=== PATIENT | male | born 1965 | race American Indian/Alaskan Native ===

== ENCOUNTER 2018-04-17 13:57 | Emergency (ER) | payer SELFPAY ==
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
--- NOTE | 2018-04-17 15:28 | XRay Report ---
CERVICAL SPINE, 3 views: History: Neck pain. Findings: The vertebral bodies, disk spaces, posterior elements and prevertebral soft tissues are unremarkable. The dens is intact. No acute fracture or malalignment is identified. Early degenerative disc disease is identified at C5-6. Impression: Early degenerative disc disease at C5-6. No acute injury is appreciated.
--- NOTE | 2018-04-17 15:29 | XRay Report ---
AP AND LATERAL LUMBOSACRAL SPINE: History: Pain. There is straightening of the normal lumbar lordosis. Mild degenerative disc disease and facet arthropathy are identified at all levels. No evidence for compression deformity, subluxation or bone lesion. IMPRESSION: Lumbar spondylosis. No acute injury is identified.
[2018-04-17] MEDS ORDERED: DELTASONE PO ONE (16:04)
[2018-04-17] MEDS ORDERED: TORADOL IM ONE (16:04)
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
[2018-04-17 16:40] VITALS: BP 179/99
== END 2018-04-17 16:39 | disposition home or self-care (01) ==
LOC: ED 13:57
DX: M54.5 Low back pain (principal); M54.2 Cervicalgia; M62.830 Muscle spasm of back; V49.49XA Driver injured in collision with other motor vehicles in traffic accident, initial encounter; Y93.89 Activity, other specified; Y92.410 Unspecified street and highway as the place of occurrence of the external cause; Y99.8 Other external cause status
CPT/HCPCS: 72040; 72100; 96372; 99283; J1885; J7512

== ENCOUNTER 2018-07-01 12:53 | Emergency (ER) | payer OTHER ==
--- NOTE | 2018-07-01 14:10 | Emergency Department Report ---
Chief Complaint: Extremity Injury, Lower Stated Complaint: LEG PAIN Time Seen by Provider: 07/01/18 14:08 - HPI History of Present Illness: diabetic with r leg pain- cant extend r leg in wheelchair due to heel pain on the left heel no trauma no open lesions per pt rx metformin pcp none psh none pmh none cig smoker etoh thc for the pain MSE screening note: Focused history and physical exam performed. Due to findings the following was ordered: ED Disposition for MSE Condition: Stable
[2018-07-01 14:59] LABS: Hematocrit 37.8 % (35.5-45.6); Hemoglobin 12.5 gm/dl (11.8-15.2); Mean Corpuscular HGB Conc 33 % (32-34); Mean Corpuscular Volume 87 fl (84-94); Platelet Count 454 K/mm3 (140-440); Red Blood Count 4.33 M/mm3 (3.65-5.03); Red Cell Distribution Width 13.9 % (13.2-15.2)
[2018-07-01 15:33] LABS: Calcium 9.3 mg/dL (8.4-10.2)
--- NOTE | 2018-07-01 17:11 | XRay Report ---
PROCEDURE: XR CHEST ROUTINE 2V TECHNIQUE: PA and lateral views of the chest HISTORY: PAIN COMPARISONS: None FINDINGS: There is no evidence of infiltrate, pneumothorax or pleural fluid collection. The cardiomediastinal silhouette is normal in appearance. The bony structures are notable for dextrocurvature of the thoracic spine. IMPRESSION: 1. No evidence of an acute pulmonary process. 2. Dextrocurvature thoracic spine. This document is electronically signed by Alexus Alonso MD., Jul 01 2018 05:08:50 PM ET
[2018-07-01 17:22] LABS: Bilirubin,Urine NEG (Negative); Blood,Urine LG (Negative); Color,Urine Yellow (Yellow); Mucus,Urine FEW /HPF
[2018-07-01] MEDS ORDERED: MORPHINE IV ONE (22:00)
[2018-07-01] MEDS ORDERED: NACL 0.9% 1000 ML 1,000 ML IV ONE (22:00)
[2018-07-01] MEDS ORDERED: MORPHINE ONE (22:01)
[2018-07-01 22:36] LABS: INR 1.09 (0.87-1.13)
[2018-07-01 22:37] LABS: Partial Thromboplastin Time 30.4 Sec. (24.2-36.6)
--- NOTE | 2018-07-01 23:02 | Emergency Department Report ---
ED Lower Extremity HPI - General Chief Complaint: Extremity Injury, Lower Stated Complaint: LEG PAIN Time Seen by Provider: 07/01/18 14:08 Source: patient Mode of arrival: Wheelchair Limitations: No Limitations - History of Present Illness Initial Comments: 52-year-old male with history of diabetes presents to ED with pain to the right groin, right thigh, right lower back for 12 days. Patient denies any obvious injury. States he is unable to extend fully at the right hip secondary to pain. Patient denies any swelling to the right leg or thigh. Denies any testicular swelling or bulging in the groin. Patient also reports pain to the left heel t hat recently began. Also states his glucose has been elevated. MD Complaint: hip injury -: days(s) (12) Injury: Hip: Right Type of Injury: unknown Severity: moderate Improves With: immobilization Worsens With: movement, palpation Associated Symptoms: ambulatory. denies: swelling, numbness, tingling, unable to bear weight - Related Data Home Medications Medication Instructions Recorded Confirmed Last Taken metFORMIN [Glucophage] 500 mg PO DAILY 07/01/18 07/01/18 Unknown Previous Rx's Medication Instructions Recorded Last Taken Type HYDROcodone/APAP 5-325 [Barling 1 each PO Q6HR PRN #10 tablet 07/02/18 Unknown Rx 5/325] Nitrofurantoin Monohyd/M-Cryst 100 mg PO BID #14 capsule 07/02/18 Unknown Rx [Macrobid 100 mg Capsule] Allergies Allergy/AdvReac Type Severity Reaction Status Date / Time No Known Allergies Allergy Verified 07/01/18 12:56 ED Review of Systems ROS: Stated complaint: LEG PAIN Other details as noted in HPI Comment: All other systems reviewed and negative Constitutional: denies: chills, fever Gastrointestinal: denies: abdominal pain, nausea, vomiting Musculoskeletal: as per HPI, back pain ED Past Medical Hx - Past Medical History Hx Diabetes: Yes - Social History Smoking Status: Current Some Day Smoker Substance Use Type: Marijuana - Medications Home Medications: Home Medications Medication Instructions Recorded Confirmed Last Taken Type metFORMIN [Glucophage] 500 mg PO DAILY 07/01/18 07/01/18 Unknown History HYDROcodone/APAP 5-325 [Barling 1 each PO Q6HR PRN #10 tablet 07/02/18 Unknown Rx 5/325] Nitrofurantoin Monohyd/M-Cryst 100 mg PO BID #14 capsule 07/02/18 Unknown Rx [Macrobid 100 mg Capsule] ED Physical Exam - General Limitations: No Limitations General appearance: alert, in no apparent distress - Head Head exam: Present: atraumatic, normocephalic - Eye Eye exam: Present: normal appearance - ENT ENT exam: Present: mucous membranes moist - Neck Neck exam: Present: normal inspection - Respiratory Respiratory exam: Present: normal lung sounds bilaterally. Absent: respiratory distress - Cardiovascular Cardiovascular Exam: Present: regular rate, normal rhythm - GI/Abdominal GI/Abdominal exam: Present: soft. Absent: distended, tenderness - exam: Present: normal inspection. Absent: testicular tenderness, scrotal swelling - Extremities Exam Extremities exam: Present: normal inspection (no swelling present), other (tenderness to right anterior hip in the groin, no erythema present, unable to fully extend at the hip secondary to pain, flexion intact; tenderness to left heel, no swelling/ erythema/ foreign body/ puncture present). Absent: pedal edema, calf tenderness - Back Exam Back exam: Present: paraspinal tenderness (right lower lumbar) - Neurological Exam Neurological exam: Present: alert, oriented X3 - Psychiatric Psychiatric exam: Present: normal affect, normal mood - Skin Skin exam: Present: warm, dry, intact, normal color. Absent: rash ED Course Vital Signs 07/01/18 07/01/18 07/02/18 14:08 20:12 00:33 Temperature 98.1 F Pulse Rate 86 88 Respiratory 18 18 18 Rate Blood Pressure 120/78 157/96 [Right] O2 Sat by Pulse 98 98 Oximetry - Consultations Consultation #1: 07/02/18 00:09 Spoke w/ Dr Marroquin. States rare to have to operate on psoas hematomas, unless evidence of continued bleeding. CT performed w/o contrast, however, since pain ongoing x 12 days, Hb normal, vitals normal, likely no continued bleeding. Recommend NSAIDs, ice, rest, allow to reabsorb. Follow up in office in 2 weeks ED Lower Extremity MDM - Lab Data Result diagrams: 07/01/18 14:31 07/01/18 14:31 - Radiology Data Radiology results: report reviewed, image reviewed - Medical Decision Making 52-year-old male with pain to right lower back, right groin x 12 days. Vitals normal, pt afebrile. WBC's elevated to 16. On exam, pt has tenderness to right groin and right lower back. No swelling present right leg, no calf tenderness. D-dimer was ordered for possibilty of DVT in differential since US tech not available at this time. However, CT shows that pt has large psoas muscle hematoma. This accounts for pt's pain. US no longer necessary. Spoke w/ surgeon, states pt may have suffered a tear and did not realize it 12 days ago. Pt not on blood thinners. Likely no active bleeding as it has already been 12 days, Hb normal, and pt not tachycardic or hypotensive to suggest blood loss. IV fluids given for hyperglycemia. Pt not in DKA. Likely pseudohyponatremia due to hyperglycemia. Glucose improved to 318. Evidence of UTI on UA. Pt given antibiotic rx and pain meds. Advised f/u w/ Dr Marroquin in 2 weeks. Return precautions given. - Differential Diagnosis DVT, kidney stone, intraabdominal abnormality Critical care attestation.: If time is entered above; I have spent that time in minutes in the direct care of this critically ill patient, excluding procedure time. ED Disposition Clinical Impression: Nontraumatic psoas hematoma, UTI (urinary tract infection), Calcaneal spur of left foot Disposition: - TO HOME OR SELFCARE Is pt being admited?: No Condition: Stable Instructions: Urinary Tract Infection in Men (ED), Contusion in Adults (ED) Prescriptions: Nitrofurantoin Monohyd/M-Cryst [Macrobid 100 mg Capsule] 100 mg PO BID #14 capsule HYDROcodone/APAP 5-325 [Barling 5/325] 1 each PO Q6HR PRN #10 tablet PRN Reason: Pain Referrals: CHRISTA GONZALEZ MD [Primary Care Provider] - 3-5 Days BRIDGET MARROQUIN DO [Staff Physician] - 7-10 days Time of Disposition: 00:17
--- NOTE | 2018-07-01 23:23 | Cat Scan Report ---
PROCEDURE: CT ABDOMEN PELVIS WO CON TECHNIQUE: Computerized axial tomography of the abdomen and pelvis was performed without intravenous contrast. This study is performed without intravascular contrast material and its sensitivity for ab dominal and pelvic pathology, including neoplasms, inflammation, abscess, free fluid, thrombosis, art erial dissection and infarction, is reduced compared with a contrast enhanced study. CT DOSE LENGTH PRODUCT: 1070.1 mGycm HISTORY: R flank pain COMPARISONS: None . FINDINGS: Visualized lower thorax: No significant abnormality. Liver: Normal size and attenuation. Spleen: Normal size and attenuation. Gallbladder and biliary system: Normal. Pancreas: Normal. Adrenals: Normal. Kidneys: Both kidneys have a normal size. No hydronephrosis. There is a 3 cm cyst off the lateral pos terior left renal cortex. GI tract: No obstruction. The cecum, appendix and colon are normal. The stomach is normal. . Lymph nodes and mesentery: Normal. Vasculature: Mild atherosclerosis of aorta and branching vessels.. Bladder: Normal. Reproductive organs: Normal. Peritoneum: No free fluid. Musculoskeletal structures: Mild degenerative changes of the spine.. Other: There is mixed attenuation in the medial aspect of the right psoas muscle extending down into the pelvic musculature. Hematoma along the medial aspect of the right psoas muscle is suspected in t his region. Evaluation is limited without IV contrast. This area of suspected hematoma measures appro ximately 5.2 x 5.3 and the axial images. Length of the suspected hematoma is approximately 14 cm willard g the psoas muscle.. IMPRESSION: Large right psoas muscle hematoma is suspected as discussed. This is along the medial as pect of the right psoas musculature. Evaluation of this area is limited without IV contrast. There is no evidence of intestinal or urinary tract obstruction. The appendix is normal. . This document is electronically signed by Viri Ambrosio DO., Jul 01 2018 11:20:57 PM ET
--- NOTE | 2018-07-01 23:41 | XRay Report ---
PROCEDURE: XR FOOT 3+V LT TECHNIQUE: Left foot radiographs, AP, lateral, and oblique views. HISTORY: heel pain COMPARISONS: None . FINDINGS: Fracture (s) and/or Dislocation(s): None . Alignment: Normal . Joint space(s): Normal . Soft tissues: Normal . Bone mineralization: Normal . Foreign bodies: None . Calcaneal spurring: Mild inferior spur . IMPRESSION: There is no evidence of an acute fracture or dislocation. Small inferior calcaneal spur. . This document is electronically signed by Viri Ambrosio DO., Jul 01 2018 11:40:20 PM ET
[2018-07-02 00:34] VITALS: BP 157/96
== END 2018-07-02 00:33 | disposition home or self-care (01) ==
LOC: ED 12:53
DX: M79.81 Nontraumatic hematoma of soft tissue (principal); N39.0 Urinary tract infection, site not specified; M77.32 Calcaneal spur, left foot; F17.200 Nicotine dependence, unspecified, uncomplicated; F12.10 Cannabis abuse, uncomplicated; E11.9 Type 2 diabetes mellitus without complications; Z79.84 Long term (current) use of oral hypoglycemic drugs
CPT/HCPCS: 36415; 71046; 73630; 74176; 80053; 81001; 82805; 82962; 85027; 85379; 85610; 85730; 96374; 99284; J2270; J7030